=== PATIENT | male | born 1985 | race Caucasian/White ===

== ENCOUNTER → 2020-09-11 | Outpatient (CLI) | payer MEDICARE, OTHER ==
[~2020-09-11] MED LIST: CIPR500 PO; Crutch1 EACH MISC; Norco 5-325 Ta1 EACH PO; OXYC1TAB11; STOOL SOFTENER100 MG PO; Vistaril25 MG PO; Zofran Odt4 MG PO
[2020-09-11 15:11] LABS: BASOPHILS ABSOLUTE AUTO 0.04 K/mm3 (0.00-0.23); BASOPHILS PERCENT AUTO 1 % (0-2); EOSINOPHILS ABSOLUTE AUTO 0.15 K/mm3 (0.00-0.68); EOSINOPHILS PERCENT AUTO 2 % (0-6); Hematocrit 46.5 % (37.0-53.0); Hemoglobin 15.3 g/dL (13.5-17.5); IMMATURE GRAN ABSOLUTE AUTO 0.01 K/mm3 (0.00-0.10); IMMATURE GRAN PERCENT AUTO 0 % (0-1); LYMPHOCYTES ABSOLUTE AUTO 2.57 K/mm3 (0.84-5.20); LYMPHOCYTES PERCENT AUTO 35 % (21-46); MONOCYTES ABSOLUTE AUTO 0.41 K/mm3 (0.16-1.47); MONOCYTES PERCENT AUTO 6 % (4-13); Mean Corpuscular HGB 27.4 pg (26.0-34.0); Mean Corpuscular HGB Conc 32.9 g/dL (31.5-36.5); Mean Corpuscular Volume 83 fL (80-100); NEUTROPHILS ABSOLUTE AUTO 4.25 K/mm3 (1.96-9.15); NEUTROPHILS PERCENT AUTO 57 % (41-73); Platelet Count 140 K/mm3 (150-400); RDW Coefficient Variation 13.2 % (11.7-14.2); RDW Standard Deviation 40.1 fL (35.1-46.3); Red Blood Cell Count 5.59 M/mm3 (4.30-5.90); White Blood Cell Count 7.43 K/mm3 (4.00-11.30)
[2020-09-11 15:19] LABS: Mean Platelet Volume 13.1 fL (9.1-12.4)
[2020-09-11 17:10] LABS: Alanine Aminotransfer (ALT/SGP 38 U/L (12-78); Albumin, Blood 3.6 g/dL (3.4-5.0); Alk Phos 65 U/L (50-136); Anion Gap 7 mmol/L (6-16); Aspartate Aminotrans (AST/SGOT 24 U/L (12-37); Bilirubin, Total 0.2 mg/dL (0.1-1.0); Blood Urea Nitrogen 19 mg/dL (8-24); Bun/Creatinine Ratio 26.6 (12.0-20.0); CO2, Blood 28 mmol/L (21-32); Calcium, Blood 8.9 mg/dL (8.5-10.1); Chloride, Blood 106 mmol/L (98-108); Creatinine, Blood 0.72 mg/dL (0.60-1.20); Globulin, Blood 3.6 g/dL (2.2-4.0); Glomerular Filtration Rate >60 (60-); Glucose, Blood 129 mg/dL (70-99); Potassium, Blood 3.7 mmol/L (3.5-5.5); Sodium, Blood 141 mmol/L (136-145); Total Protein, Blood 7.2 g/dL (6.4-8.2)
== END | disposition home or self-care (01) ==
LOC: LAB 15:00 → LAB SHORT 15:00
PROVIDERS: Internal Medicine Infectious Disease
DX: M86.172 Other acute osteomyelitis, left ankle and foot (principal); L97.519 Non-pressure chronic ulcer of other part of right foot with unspecified severity; L97.529 Non-pressure chronic ulcer of other part of left foot with unspecified severity; Z45.2 Encounter for adjustment and management of vascular access device; Z79.2 Long term (current) use of antibiotics
CPT/HCPCS: 80053; 85025; 85651; 86140

== ENCOUNTER → 2020-09-17 | Outpatient (CLI) | payer MEDICARE, OTHER ==
[2020-09-17 16:52] LABS: BASOPHILS ABSOLUTE AUTO 0.03 K/mm3 (0.00-0.23); BASOPHILS PERCENT AUTO 0 % (0-2); EOSINOPHILS ABSOLUTE AUTO 0.23 K/mm3 (0.00-0.68); EOSINOPHILS PERCENT AUTO 3 % (0-6); Hematocrit 45.6 % (37.0-53.0); Hemoglobin 15.1 g/dL (13.5-17.5); IMMATURE GRAN ABSOLUTE AUTO 0.01 K/mm3 (0.00-0.10); IMMATURE GRAN PERCENT AUTO 0 % (0-1); LYMPHOCYTES ABSOLUTE AUTO 3.15 K/mm3 (0.84-5.20); LYMPHOCYTES PERCENT AUTO 46 % (21-46); MONOCYTES ABSOLUTE AUTO 0.37 K/mm3 (0.16-1.47); MONOCYTES PERCENT AUTO 5 % (4-13); Mean Corpuscular HGB 27.9 pg (26.0-34.0); Mean Corpuscular HGB Conc 33.1 g/dL (31.5-36.5); Mean Corpuscular Volume 84 fL (80-100); Mean Platelet Volume 12.2 fL (9.1-12.4); NEUTROPHILS PERCENT AUTO 44 % (41-73); Platelet Count 155 K/mm3 (150-400); RDW Coefficient Variation 13.5 % (11.7-14.2); RDW Standard Deviation 41.4 fL (35.1-46.3); Red Blood Cell Count 5.42 M/mm3 (4.30-5.90); White Blood Cell Count 6.79 K/mm3 (4.00-11.30)
[2020-09-17 17:11] LABS: Alanine Aminotransfer (ALT/SGP 34 U/L (12-78); Albumin, Blood 3.3 g/dL (3.4-5.0); Albumin/Globulin Ratio 0.9 (0.8-1.8); Alk Phos 62 U/L (50-136); Anion Gap 4 mmol/L (6-16); Aspartate Aminotrans (AST/SGOT 22 U/L (12-37); Bilirubin, Total 0.2 mg/dL (0.1-1.0); Blood Urea Nitrogen 21 mg/dL (8-24); Bun/Creatinine Ratio 26.7 (12.0-20.0); CO2, Blood 30 mmol/L (21-32); Calcium, Blood 8.3 mg/dL (8.5-10.1); Chloride, Blood 112 mmol/L (98-108); Creatinine, Blood 0.79 mg/dL (0.60-1.20); Globulin, Blood 3.5 g/dL (2.2-4.0); Glomerular Filtration Rate >60 (60-); Glucose, Blood 141 mg/dL (70-99); Potassium, Blood 3.9 mmol/L (3.5-5.5); Sodium, Blood 146 mmol/L (136-145); Total Protein, Blood 6.8 g/dL (6.4-8.2)
== END | disposition home or self-care (01) ==
LOC: LAB SHORT 16:40 → LAB 16:40
PROVIDERS: Internal Medicine Infectious Disease
DX: M86.172 Other acute osteomyelitis, left ankle and foot (principal); L97.522 Non-pressure chronic ulcer of other part of left foot with fat layer exposed; L97.512 Non-pressure chronic ulcer of other part of right foot with fat layer exposed; Z45.2 Encounter for adjustment and management of vascular access device; Z79.2 Long term (current) use of antibiotics; Z68.37 Body mass index [BMI] 37.0-37.9, adult
CPT/HCPCS: 80053; 85025; 85651; 86140

== ENCOUNTER → 2020-09-24 | Outpatient (CLI) | payer MEDICARE, OTHER ==
[2020-09-24 17:05] LABS: BASOPHILS ABSOLUTE AUTO 0.02 K/mm3 (0.00-0.23); BASOPHILS PERCENT AUTO 0 % (0-2); EOSINOPHILS ABSOLUTE AUTO 0.15 K/mm3 (0.00-0.68); EOSINOPHILS PERCENT AUTO 2 % (0-6); Hematocrit 47.8 % (37.0-53.0); Hemoglobin 15.3 g/dL (13.5-17.5); IMMATURE GRAN PERCENT AUTO 0 % (0-1); LYMPHOCYTES ABSOLUTE AUTO 2.79 K/mm3 (0.84-5.20); LYMPHOCYTES PERCENT AUTO 38 % (21-46); MONOCYTES ABSOLUTE AUTO 0.51 K/mm3 (0.16-1.47); MONOCYTES PERCENT AUTO 7 % (4-13); Mean Corpuscular HGB 27.3 pg (26.0-34.0); Mean Corpuscular Volume 85 fL (80-100); NEUTROPHILS ABSOLUTE AUTO 3.83 K/mm3 (1.96-9.15); NEUTROPHILS PERCENT AUTO 52 % (41-73); Platelet Count 147 K/mm3 (150-400); RDW Coefficient Variation 13.8 % (11.7-14.2); RDW Standard Deviation 42.7 fL (35.1-46.3); Red Blood Cell Count 5.61 M/mm3 (4.30-5.90)
[2020-09-24 17:26] LABS: Alanine Aminotransfer (ALT/SGP 31 U/L (12-78); Albumin, Blood 3.5 g/dL (3.4-5.0); Alk Phos 61 U/L (50-136); Anion Gap 4 mmol/L (6-16); Aspartate Aminotrans (AST/SGOT 25 U/L (12-37); Bilirubin, Total 0.3 mg/dL (0.1-1.0); Blood Urea Nitrogen 19 mg/dL (8-24); Bun/Creatinine Ratio 21.2 (12.0-20.0); CO2, Blood 31 mmol/L (21-32); Calcium, Blood 9.2 mg/dL (8.5-10.1); Chloride, Blood 110 mmol/L (98-108); Globulin, Blood 3.5 g/dL (2.2-4.0); Glomerular Filtration Rate >60 (60-); Glucose, Blood 89 mg/dL (70-99); Potassium, Blood 3.9 mmol/L (3.5-5.5); Sodium, Blood 145 mmol/L (136-145)
== END | disposition home or self-care (01) ==
LOC: LAB 16:52 → LAB SHORT 16:52
PROVIDERS: Internal Medicine Infectious Disease
DX: Z45.2 Encounter for adjustment and management of vascular access device (principal); M86.172 Other acute osteomyelitis, left ankle and foot; L97.522 Non-pressure chronic ulcer of other part of left foot with fat layer exposed; L97.512 Non-pressure chronic ulcer of other part of right foot with fat layer exposed; Z79.2 Long term (current) use of antibiotics
CPT/HCPCS: 80053; 85025; 85651; 86140

== ENCOUNTER 2020-09-29 02:23 | Day surgery (SDC) | payer MEDICARE, OTHER | END 2020-09-29 23:22 | disposition home or self-care (01) | LOC: WOUND 02:23 | DX: I96 Gangrene, not elsewhere classified (principal); L89.622 Pressure ulcer of left heel, stage 2; L89.612 Pressure ulcer of right heel, stage 2; M86.9 Osteomyelitis, unspecified; S91.301D Unspecified open wound, right foot, subsequent encounter; S91.302D Unspecified open wound, left foot, subsequent encounter; F41.8 Other specified anxiety disorders; Z87.891 Personal history of nicotine dependence; X58.XXXD Exposure to other specified factors, subsequent encounter | CPT/HCPCS: G0463 ==

== ENCOUNTER → 2020-09-30 | Outpatient (CLI) | payer MEDICARE, OTHER ==
[2020-09-30 15:38] LABS: BASOPHILS ABSOLUTE AUTO 0.03 K/mm3 (0.00-0.23); BASOPHILS PERCENT AUTO 0 % (0-2); EOSINOPHILS ABSOLUTE AUTO 0.13 K/mm3 (0.00-0.68); EOSINOPHILS PERCENT AUTO 2 % (0-6); Hematocrit 47.3 % (37.0-53.0); Hemoglobin 15.4 g/dL (13.5-17.5); IMMATURE GRAN ABSOLUTE AUTO 0.01 K/mm3 (0.00-0.10); IMMATURE GRAN PERCENT AUTO 0 % (0-1); LYMPHOCYTES ABSOLUTE AUTO 2.91 K/mm3 (0.84-5.20); LYMPHOCYTES PERCENT AUTO 42 % (21-46); MONOCYTES ABSOLUTE AUTO 0.44 K/mm3 (0.16-1.47); MONOCYTES PERCENT AUTO 6 % (4-13); Mean Corpuscular HGB 27.1 pg (26.0-34.0); Mean Corpuscular HGB Conc 32.6 g/dL (31.5-36.5); Mean Corpuscular Volume 83 fL (80-100); NEUTROPHILS ABSOLUTE AUTO 3.41 K/mm3 (1.96-9.15); NEUTROPHILS PERCENT AUTO 49 % (41-73); Platelet Count 143 K/mm3 (150-400); RDW Coefficient Variation 13.4 % (11.7-14.2); Red Blood Cell Count 5.69 M/mm3 (4.30-5.90); White Blood Cell Count 6.93 K/mm3 (4.00-11.30)
[2020-09-30 15:39] LABS: Mean Platelet Volume 13.1 fL (9.1-12.4)
[2020-09-30 15:45] LABS: C-REACTIVE PROTEIN, EXT RANGE 0.932 mg/dL (0.000-0.300)
[2020-09-30 15:47] LABS: Alanine Aminotransfer (ALT/SGP 28 U/L (12-78); Albumin, Blood 3.5 g/dL (3.4-5.0); Alk Phos 63 U/L (50-136); Anion Gap 9 mmol/L (6-16); Aspartate Aminotrans (AST/SGOT 23 U/L (12-37); Bilirubin, Total 0.3 mg/dL (0.1-1.0); Blood Urea Nitrogen 18 mg/dL (8-24); Bun/Creatinine Ratio 22.4 (12.0-20.0); CO2, Blood 26 mmol/L (21-32); Calcium, Blood 9.1 mg/dL (8.5-10.1); Chloride, Blood 110 mmol/L (98-108); Globulin, Blood 3.6 g/dL (2.2-4.0); Glomerular Filtration Rate >60 (60-); Glucose, Blood 88 mg/dL (70-99); Potassium, Blood 3.7 mmol/L (3.5-5.5); Sodium, Blood 145 mmol/L (136-145); Total Protein, Blood 7.1 g/dL (6.4-8.2)
== END | disposition home or self-care (01) ==
LOC: LAB 14:20 → LAB SHORT 14:20
PROVIDERS: Internal Medicine Infectious Disease
DX: M86.172 Other acute osteomyelitis, left ankle and foot (principal); L97.522 Non-pressure chronic ulcer of other part of left foot with fat layer exposed; L97.512 Non-pressure chronic ulcer of other part of right foot with fat layer exposed; Z45.2 Encounter for adjustment and management of vascular access device; Z79.2 Long term (current) use of antibiotics; Z68.37 Body mass index [BMI] 37.0-37.9, adult
CPT/HCPCS: 80053; 85025; 85651; 86140

== ENCOUNTER 2020-11-08 11:58 | Emergency (ER) | payer MEDICARE, OTHER ==
[~2020-11-08] VITALS: Ht 188 cm; Wt 142.9 kg
[2020-11-08 13:36] LABS: Influenza A, PCR Negative (NEGATIVE); Influenza B, PCR Negative (NEGATIVE); Resp Syncytial Virus, PCR Negative (NEGATIVE); SARS-Cov-2 (COVID-19) PCR, MMC Negative (NEGATIVE)
[2020-11-08] MEDS ORDERED: ACET500 PO (13:55)
[2020-11-08] MEDS ORDERED: GUAI600T33 PO (13:55)
[2020-11-08] MEDS ORDERED: OFLOXACIN5 ML LEFTEAR (13:55)
== END 2020-11-08 14:02 | disposition home or self-care (01) ==
LOC: ER 11:58
PROVIDERS: Physician Assistant
DX: H60.92 Unspecified otitis externa, left ear (principal); H61.21 Impacted cerumen, right ear; J06.9 Acute upper respiratory infection, unspecified; Z87.891 Personal history of nicotine dependence; Z20.822 Contact with and (suspected) exposure to COVID-19
CPT/HCPCS: 0241U; 71046; 99284-25; A9270

== ENCOUNTER 2021-02-24 00:24 | Day surgery (SDC) | payer MEDICARE, OTHER ==
[~2021-02-24 00:24] MED LIST changes: +ACET500 PO; +GUAI600T33 PO; +OFLOXACIN5 ML LEFTEAR
== END 2021-02-24 23:07 | disposition home or self-care (01) ==
LOC: WOUND 00:24
DX: L97.524 Non-pressure chronic ulcer of other part of left foot with necrosis of bone (principal); G60.9 Hereditary and idiopathic neuropathy, unspecified; M86.172 Other acute osteomyelitis, left ankle and foot; S91.105A Unspecified open wound of left lesser toe(s) without damage to nail, initial encounter; S81.802A Unspecified open wound, left lower leg, initial encounter; Y83.8 Other surgical procedures as the cause of abnormal reaction of the patient, or of later complication, without mention of misadventure at the time of the procedure; Z87.891 Personal history of nicotine dependence
CPT/HCPCS: G0463

== ENCOUNTER 2021-03-03 00:16 | Day surgery (SDC) | payer MEDICARE, OTHER | END 2021-03-03 23:31 | disposition home or self-care (01) | LOC: WOUND 00:16 | DX: L89.890 Pressure ulcer of other site, unstageable (principal); L97.524 Non-pressure chronic ulcer of other part of left foot with necrosis of bone; G60.9 Hereditary and idiopathic neuropathy, unspecified; M86.172 Other acute osteomyelitis, left ankle and foot; S91.105A Unspecified open wound of left lesser toe(s) without damage to nail, initial encounter; X58.XXXA Exposure to other specified factors, initial encounter | CPT/HCPCS: A9270 ==

== ENCOUNTER 2021-03-17 00:15 | Day surgery (SDC) | payer MEDICARE, OTHER | END 2021-03-17 23:47 | disposition home or self-care (01) | LOC: WOUND 00:15 | DX: L97.524 Non-pressure chronic ulcer of other part of left foot with necrosis of bone (principal); G60.9 Hereditary and idiopathic neuropathy, unspecified; M86.172 Other acute osteomyelitis, left ankle and foot; S91.105A Unspecified open wound of left lesser toe(s) without damage to nail, initial encounter; L89.890 Pressure ulcer of other site, unstageable; X58.XXXA Exposure to other specified factors, initial encounter | CPT/HCPCS: A9270 ==

== ENCOUNTER → 2021-03-19 | Outpatient (CLI) | payer MEDICARE, OTHER ==
[~2021-03-19] MED LIST changes: +AMOCLA875 PO; +LEVO750 PO; +Levaquin750 MG PO; +VISBIOME 112.51 EACH PO
== END ==
LOC: LAB UCHC 14:36 → LAB SHORT 14:36
DX: M86.9 Osteomyelitis, unspecified (principal)
CPT/HCPCS: 87070; 87075; 87076; 87077; 87186; 87205

== ENCOUNTER 2021-03-23 19:59 | Emergency (ER) | payer MEDICARE, OTHER ==
[~2021-03-23] VITALS: Ht 188 cm; Wt 163.3 kg
[~2021-03-23 19:59] MED LIST changes: -AMOCLA875 PO; -LEVO750 PO; -Levaquin750 MG PO; -VISBIOME 112.51 EACH PO
[2021-03-23 21:10] LABS: BASOPHILS ABSOLUTE AUTO 0.04 K/mm3 (0.00-0.23); BASOPHILS PERCENT AUTO 0 % (0-2); EOSINOPHILS ABSOLUTE AUTO 0.21 K/mm3 (0.00-0.68); EOSINOPHILS PERCENT AUTO 2 % (0-6); Hematocrit 46.7 % (37.0-53.0); Hemoglobin 16.4 g/dL (13.5-17.5); Mean Corpuscular HGB Conc 35.1 g/dL (31.5-36.5); Mean Corpuscular Volume 83 fL (80-100); Mean Platelet Volume 12.6 fL (9.1-12.4); Platelet Count 177 K/mm3 (150-400); RDW Coefficient Variation 13.6 % (11.7-14.2); RDW Standard Deviation 41.4 fL (35.1-46.3); Red Blood Cell Count 5.65 M/mm3 (4.30-5.90); White Blood Cell Count 10.79 K/mm3 (4.00-11.30)
[2021-03-23 21:12] LABS: IMMATURE GRAN ABSOLUTE AUTO 0.02 K/mm3 (0.00-0.10); IMMATURE GRAN PERCENT AUTO 0 % (0-1); LYMPHOCYTES PERCENT AUTO 37 % (21-46); MONOCYTES PERCENT AUTO 6 % (4-13); NEUTROPHILS ABSOLUTE AUTO 5.92 K/mm3 (1.96-9.15); NEUTROPHILS PERCENT AUTO 55 % (41-73)
[2021-03-23 22:22] LABS: Alanine Aminotransfer (ALT/SGP 46 U/L (12-78); Albumin, Blood 3.7 g/dL (3.4-5.0); Alk Phos 65 U/L (50-136); Anion Gap 7 mmol/L (6-16); Aspartate Aminotrans (AST/SGOT 40 U/L (12-37); Bilirubin, Total 0.5 mg/dL (0.1-1.0); Blood Urea Nitrogen 24 mg/dL (8-24); Bun/Creatinine Ratio 23.1 (12.0-20.0); CO2, Blood 24 mmol/L (21-32); Chloride, Blood 105 mmol/L (98-108); Creatinine, Blood 1.04 mg/dL (0.60-1.20); Globulin, Blood 3.8 g/dL (2.2-4.0); Glomerular Filtration Rate >60 (60-); Glucose, Blood 136 mg/dL (70-99); Potassium, Blood 3.9 mmol/L (3.5-5.5); Sodium, Blood 136 mmol/L (136-145); Total Protein, Blood 7.5 g/dL (6.4-8.2)
[2021-03-23] MEDS ORDERED: AMOCLA875 PO (23:58)
[2021-03-23] MEDS ORDERED: Levaquin750 MG PO (23:58)
== END 2021-03-24 00:15 | disposition home or self-care (01) ==
LOC: ER 19:59
PROVIDERS: Physician Assistant
DX: L97.529 Non-pressure chronic ulcer of other part of left foot with unspecified severity (principal); L08.9 Local infection of the skin and subcutaneous tissue, unspecified; B96.5 Pseudomonas (aeruginosa) (mallei) (pseudomallei) as the cause of diseases classified elsewhere; Z87.891 Personal history of nicotine dependence; Z79.899 Other long term (current) drug therapy
CPT/HCPCS: 80053; 85025; 99283; A9270

== ENCOUNTER 2021-03-24 03:25 | Day surgery (SDC) | payer MEDICARE, OTHER ==
[~2021-03-24 03:25] MED LIST changes: +AMOCLA875 PO; +Levaquin750 MG PO
== END 2021-03-24 23:09 | disposition home or self-care (01) ==
LOC: WOUND 03:25
DX: L97.524 Non-pressure chronic ulcer of other part of left foot with necrosis of bone (principal); G60.9 Hereditary and idiopathic neuropathy, unspecified; M86.172 Other acute osteomyelitis, left ankle and foot; L89.890 Pressure ulcer of other site, unstageable; S91.105A Unspecified open wound of left lesser toe(s) without damage to nail, initial encounter; X58.XXXA Exposure to other specified factors, initial encounter
CPT/HCPCS: A9270; G0463

== ENCOUNTER 2021-03-31 02:58 | Day surgery (SDC) | payer MEDICARE, OTHER | END 2021-03-31 23:18 | disposition home or self-care (01) | LOC: WOUND 02:58 | DX: M86.172 Other acute osteomyelitis, left ankle and foot (principal); L97.524 Non-pressure chronic ulcer of other part of left foot with necrosis of bone; L89.890 Pressure ulcer of other site, unstageable; G60.9 Hereditary and idiopathic neuropathy, unspecified; S91.105A Unspecified open wound of left lesser toe(s) without damage to nail, initial encounter; X58.XXXA Exposure to other specified factors, initial encounter | CPT/HCPCS: A9270 ==

== ENCOUNTER 2021-04-14 02:14 | Day surgery (SDC) | payer MEDICARE, OTHER | END 2021-04-14 23:01 | disposition home or self-care (01) | LOC: WOUND 02:14 | DX: M86.172 Other acute osteomyelitis, left ankle and foot (principal); L97.524 Non-pressure chronic ulcer of other part of left foot with necrosis of bone; L89.890 Pressure ulcer of other site, unstageable; S91.105A Unspecified open wound of left lesser toe(s) without damage to nail, initial encounter; X58.XXXA Exposure to other specified factors, initial encounter; G60.9 Hereditary and idiopathic neuropathy, unspecified ==

== ENCOUNTER 2021-04-21 00:21 | Day surgery (SDC) | payer MEDICARE, OTHER | END 2021-04-21 23:00 | disposition home or self-care (01) | LOC: WOUND 00:21 | DX: L89.890 Pressure ulcer of other site, unstageable (principal); M86.8X7 Other osteomyelitis, ankle and foot | CPT/HCPCS: A9270 ==

== ENCOUNTER 2021-05-01 01:52 | Day surgery (SDC) | payer MEDICARE, OTHER | END 2021-05-01 12:00 | disposition home or self-care (01) | LOC: WOUND 01:52 | DX: L97.425 Non-pressure chronic ulcer of left heel and midfoot with muscle involvement without evidence of necrosis (principal); L89.890 Pressure ulcer of other site, unstageable; G60.9 Hereditary and idiopathic neuropathy, unspecified; M86.172 Other acute osteomyelitis, left ankle and foot; S91.105A Unspecified open wound of left lesser toe(s) without damage to nail, initial encounter; X58.XXXA Exposure to other specified factors, initial encounter | CPT/HCPCS: A9270 ==

== ENCOUNTER 2021-05-04 21:12 | Inpatient (IN) | payer MEDICARE, OTHER ==
[~2021-05-04] VITALS: Ht 188 cm; Wt 175.9 kg
[2021-05-05 00:45] LABS: BASOPHILS ABSOLUTE AUTO 0.03 K/mm3 (0.00-0.23); BASOPHILS PERCENT AUTO 0 % (0-2); EOSINOPHILS ABSOLUTE AUTO 0.17 K/mm3 (0.00-0.68); EOSINOPHILS PERCENT AUTO 2 % (0-6); Hematocrit 44.8 % (37.0-53.0); Hemoglobin 14.8 g/dL (13.5-17.5); IMMATURE GRAN ABSOLUTE AUTO 0.03 K/mm3 (0.00-0.10); IMMATURE GRAN PERCENT AUTO 0 % (0-1); LYMPHOCYTES PERCENT AUTO 34 % (21-46); MONOCYTES PERCENT AUTO 7 % (4-13); Mean Corpuscular HGB 27.5 pg (26.0-34.0); Mean Corpuscular Volume 83 fL (80-100); Mean Platelet Volume 12.1 fL (9.1-12.4); NEUTROPHILS ABSOLUTE AUTO 4.71 K/mm3 (1.96-9.15); NEUTROPHILS PERCENT AUTO 56 % (41-73); Platelet Count 164 K/mm3 (150-400); RDW Coefficient Variation 13.6 % (11.7-14.2); RDW Standard Deviation 41.5 fL (35.1-46.3); Red Blood Cell Count 5.38 M/mm3 (4.30-5.90); White Blood Cell Count 8.44 K/mm3 (4.00-11.30)
[2021-05-05 01:02] LABS: Alanine Aminotransfer (ALT/SGP 30 U/L (12-78); Albumin, Blood 3.4 g/dL (3.4-5.0); Albumin/Globulin Ratio 0.9 (0.8-1.8); Alk Phos 60 U/L (50-136); Anion Gap 5 mmol/L (6-16); Aspartate Aminotrans (AST/SGOT 18 U/L (12-37); Bilirubin, Total 0.3 mg/dL (0.1-1.0); Blood Urea Nitrogen 23 mg/dL (8-24); Bun/Creatinine Ratio 23.1 (12.0-20.0); CO2, Blood 28 mmol/L (21-32); Chloride, Blood 105 mmol/L (98-108); Globulin, Blood 3.7 g/dL (2.2-4.0); Glomerular Filtration Rate >60 (60-); Glucose, Blood 104 mg/dL (70-99); Potassium, Blood 3.8 mmol/L (3.5-5.5); Sodium, Blood 138 mmol/L (136-145); Total Protein, Blood 7.1 g/dL (6.4-8.2)
[2021-05-05 15:49] LABS: Vancomycin, Trough 20.5 ug/mL (5.0-10.0)
--- NOTE | 2021-05-05 19:38 | NUR ---
SHIFT SUMMARY PATIENT NEW ADMIT TO UNIT THIS AM ABOUT 0900. RIGHT 2ND TOE INFECTION. PATIENT IS OBESE. ALERT AND ORIENTED AND COOPERATIVE. DR ROJO CONSULTED. PLAN IS FOR SURGICAL REMOVAL OF PART OF RIGHT 2ND TOE LATE TOMORROW 05/06/21 AFTERNOON. NPO AFTER BREAKFAST. ROUTINE FLUIDS AND ABX ORDERED. NEEDS A POWERGLID IV PLACED. ROLL OVER LOADER RN AWARE.
--- NOTE | 2021-05-06 04:05 | NUR ---
SHIFT SUMMARY NO ACUTE CHANGES. POWERGLIDE INSERTION THIS SHIFT. IV ABX PER ORDERS. PT RECEIVED TYLENOL + TORADOL FOR PAIN. NO DRAINAGE NOTED TO WOUND. PT INDEP TO RESTROOM. NPO SINCE MIDNIGHT. PLAN FOR SURGERY TODAY.
[2021-05-06 04:59] LABS: BASOPHILS ABSOLUTE AUTO 0.02 K/mm3 (0.00-0.23); BASOPHILS PERCENT AUTO 0 % (0-2); EOSINOPHILS ABSOLUTE AUTO 0.15 K/mm3 (0.00-0.68); EOSINOPHILS PERCENT AUTO 2 % (0-6); Hematocrit 43.6 % (37.0-53.0); Hemoglobin 14.4 g/dL (13.5-17.5); IMMATURE GRAN ABSOLUTE AUTO 0.01 K/mm3 (0.00-0.10); IMMATURE GRAN PERCENT AUTO 0 % (0-1); LYMPHOCYTES ABSOLUTE AUTO 2.21 K/mm3 (0.84-5.20); LYMPHOCYTES PERCENT AUTO 32 % (21-46); MONOCYTES ABSOLUTE AUTO 0.45 K/mm3 (0.16-1.47); MONOCYTES PERCENT AUTO 7 % (4-13); Mean Corpuscular HGB 27.4 pg (26.0-34.0); Mean Corpuscular Volume 83 fL (80-100); NEUTROPHILS ABSOLUTE AUTO 4.05 K/mm3 (1.96-9.15); NEUTROPHILS PERCENT AUTO 59 % (41-73); Platelet Count 158 K/mm3 (150-400); RDW Coefficient Variation 13.4 % (11.7-14.2); RDW Standard Deviation 40.1 fL (35.1-46.3); Red Blood Cell Count 5.26 M/mm3 (4.30-5.90); White Blood Cell Count 6.89 K/mm3 (4.00-11.30)
[2021-05-06 05:25] LABS: Alanine Aminotransfer (ALT/SGP 28 U/L (12-78); Albumin, Blood 3.1 g/dL (3.4-5.0); Albumin/Globulin Ratio 0.9 (0.8-1.8); Alk Phos 55 U/L (50-136); Anion Gap 4 mmol/L (6-16); Aspartate Aminotrans (AST/SGOT 20 U/L (12-37); Bilirubin, Total 0.4 mg/dL (0.1-1.0); Blood Urea Nitrogen 17 mg/dL (8-24); Bun/Creatinine Ratio 18.1 (12.0-20.0); CO2, Blood 29 mmol/L (21-32); Calcium, Blood 8.5 mg/dL (8.5-10.1); Chloride, Blood 107 mmol/L (98-108); Creatinine, Blood 0.94 mg/dL (0.60-1.20); Globulin, Blood 3.6 g/dL (2.2-4.0); Glomerular Filtration Rate >60 (60-); Glucose, Blood 102 mg/dL (70-99); Sodium, Blood 140 mmol/L (136-145); Total Protein, Blood 6.7 g/dL (6.4-8.2)
--- NOTE | 2021-05-06 10:41 | NUR ---
pt req pain meds and nausea meds toradol and zofran given no emesis mild only
--- NOTE | 2021-05-06 11:23 | NUR ---
pt stated pain is much better also h/a is improved
--- NOTE | 2021-05-06 18:01 | NUR ---
pt sitting on edge of bed or called after talking with dr pulido surg cancelled today ok to eat sched for around 3pm
[2021-05-06 23:40] LABS: Vancomycin, Trough 23.1 ug/mL (5.0-10.0)
[2021-05-07 04:45] LABS: Hematocrit 42.4 % (37.0-53.0); Mean Corpuscular HGB 27.3 pg (26.0-34.0); Mean Corpuscular Volume 83 fL (80-100); Platelet Count 163 K/mm3 (150-400); RDW Coefficient Variation 13.2 % (11.7-14.2); RDW Standard Deviation 39.9 fL (35.1-46.3); Red Blood Cell Count 5.12 M/mm3 (4.30-5.90)
[2021-05-07 04:58] LABS: Anion Gap 4 mmol/L (6-16); Blood Urea Nitrogen 19 mg/dL (8-24); Bun/Creatinine Ratio 18.4 (12.0-20.0); CO2, Blood 30 mmol/L (21-32); Calcium, Blood 8.4 mg/dL (8.5-10.1); Chloride, Blood 107 mmol/L (98-108); Creatinine, Blood 1.03 mg/dL (0.60-1.20); Glomerular Filtration Rate >60 (60-); Glucose, Blood 99 mg/dL (70-99); Potassium, Blood 3.6 mmol/L (3.5-5.5); Sodium, Blood 141 mmol/L (136-145)
--- NOTE | 2021-05-07 07:30 | NUR ---
SUMMARY PENDING POSSIBLE OR TODAY
--- NOTE | 2021-05-07 14:49 | NUR ---
PT TO OR AT ABOUT 1430
--- NOTE | 2021-05-07 14:59 | NUR ---
THE PATIENT WAS BROUGHT TO DAY SURGERY FOR HIS PROCEDURE. Patient up to Ambulate independently. Gait steady. History, Chart, Medications and Allergies reviewed before start of procedure.Lungs clear T/O to Auscultation. Patient confirms NPO status and agrees with scheduled surgery. Pre-Op teaching done. Pt verbalizes understanding.
--- NOTE | 2021-05-07 18:23 | NUR ---
CALL MADE TO PACU, PT IS GOING TO OR AT THIS TIME, SURGERY WAS DELAYED PER [facility] PATTERN CHANGER. PT MADE AWARE OF THIS AT 1820. WILL MAKE NOC RN AWARE.
--- NOTE | 2021-05-07 18:38 | NUR ---
REPORT RECEIVED FROM LEON BRIM RAISER AT THIS TIME
--- NOTE | 2021-05-08 05:01 | NUR ---
SHIFT SUMMARY: PT POD#1 FOR AMPUTATION OF HIS RT SECOND TOE. AMY WRAP+GAUZE C/D/I. GAUZE DRESSING SATURATED ONCE AND CHANGED/REINFORCED. PAIN BEING MANAGED WITH NORCO AND TORADOL PER EMAR. EXTREMITY ELEVATED ON PILLOW. VOIDING IN URINAL AND IN BATHROOM ONCE. PT SBA W/FWW. TOLERATING ACTIVITY WELL.
[2021-05-08] MEDS ORDERED: VISBIOME 112.51 EACH PO (14:55)
[2021-05-08] MEDS ORDERED: LEVO750 PO (14:56)
--- NOTE | 2021-05-08 15:29 | NUR ---
DISCHARGE NOTE: PATIENT WAS EDUCATED ON DISCHARGE INSTRUCTIONS. PATIENT VERBALIZED UNDERSTANDING OF INSTRUCTIONS. PERSCRIPTIONS FOR ABX AND PROBIOTIC WERE FAXED OVER TO [facility]. PATIENT IS ALERT AND ORIENTED X4. VS ARE WNL AND ON RA. PATIENT HAS A C/D/I AMY WRAP ON THE RIGHT FOOT. PATIENT RECIEVED A POST OP SHOE AND IS ON THE RIGHT FOOT. POWERGLIDE WAS TAKEN OUT AND WAS WNL. PATIENT IS TOLERTATING PO INTAKE AND VOIDING. HE IS ABLE TO WIGGLE FINGERS AND TOES. PATIENT HAS HIS ITEMS GATHERED AND IS BEING WHEELCHAIRED OUT TO HIS GIRLFRIENDS CAR TO BE TAKEN HOME.
== END 2021-05-08 16:00 | disposition home or self-care (01) | DRG 504 ==
LOC: ER 21:12 → ERHOLD 05-05 03:35 → SURS 05-05 03:35
PROVIDERS: Emergency Medicine; Internal Medicine; Pharmacist; Podiatrist; ADMIT Family Medicine
PROC: 0Y6R0Z3 Detachment at Right 2nd Toe, Low, Open Approach (ICD-10-PCS; principal; 2021-05-07 07:30)
DX: M86.171 Other acute osteomyelitis, right ankle and foot (principal); Z68.42 Body mass index [BMI] 45.0-49.9, adult; L03.031 Cellulitis of right toe; L97.514 Non-pressure chronic ulcer of other part of right foot with necrosis of bone; E66.01 Morbid (severe) obesity due to excess calories; F32.9 Major depressive disorder, single episode, unspecified; Z90.49 Acquired absence of other specified parts of digestive tract; Z98.890 Other specified postprocedural states; Z87.891 Personal history of nicotine dependence; G62.9 Polyneuropathy, unspecified; Z88.1 Allergy status to other antibiotic agents; Z88.8 Allergy status to other drugs, medicaments and biological substances; L97.519 Non-pressure chronic ulcer of other part of right foot with unspecified severity; Z79.899 Other long term (current) drug therapy
CPT/HCPCS: 36415; 73620; 73701; 80048; 80053; 80202; 83036; 83605; 84145; 84443; 85025; 85027; 87040; 87071; 87075; 87205; 88305; 88311; 96365; 96375; 99285-25; A9270; C1751; J0295; J1100; J1170; J1885; J2250; J2405; J2704; J3370; J7050; J7120; Q9967

== ENCOUNTER 2021-10-13 12:45 | Observation (INO) | payer MEDICARE, OTHER ==
[~2021-10-13] VITALS: Ht 188 cm; Wt 180.5 kg
[~2021-10-13 12:45] MED LIST changes: +LEVO750 PO; +VISBIOME 112.51 EACH PO
[2021-10-13 14:34] LABS: BASOPHILS ABSOLUTE AUTO 0.04 K/mm3 (0.00-0.23); BASOPHILS PERCENT AUTO 0 % (0-2); EOSINOPHILS ABSOLUTE AUTO 0.23 K/mm3 (0.00-0.68); EOSINOPHILS PERCENT AUTO 3 % (0-6); IMMATURE GRAN ABSOLUTE AUTO 0.02 K/mm3 (0.00-0.10); IMMATURE GRAN PERCENT AUTO 0 % (0-1); LYMPHOCYTES ABSOLUTE AUTO 2.55 K/mm3 (0.84-5.20); LYMPHOCYTES PERCENT AUTO 28 % (21-46); MONOCYTES ABSOLUTE AUTO 0.49 K/mm3 (0.16-1.47); MONOCYTES PERCENT AUTO 5 % (4-13); Mean Corpuscular HGB 27.1 pg (26.0-34.0); Mean Corpuscular HGB Conc 31.9 g/dL (31.5-36.5); Mean Corpuscular Volume 85 fL (80-100); Mean Platelet Volume 11.7 fL (9.1-12.4); NEUTROPHILS ABSOLUTE AUTO 5.72 K/mm3 (1.96-9.15); NEUTROPHILS PERCENT AUTO 63 % (41-73); Platelet Count 221 K/mm3 (150-400); RDW Coefficient Variation 13.9 % (11.7-14.2); Red Blood Cell Count 5.54 M/mm3 (4.30-5.90); White Blood Cell Count 9.05 K/mm3 (4.00-11.30)
[2021-10-13 14:51] LABS: Alanine Aminotransfer (ALT/SGP 32 U/L (12-78); Albumin, Blood 3.2 g/dL (3.4-5.0); Albumin/Globulin Ratio 0.8 (0.8-1.8); Alk Phos 75 U/L (50-136); Anion Gap 7 mmol/L (6-16); Aspartate Aminotrans (AST/SGOT 21 U/L (12-37); Bilirubin, Total 0.3 mg/dL (0.1-1.0); Blood Urea Nitrogen 16 mg/dL (8-24); Bun/Creatinine Ratio 17.7 (12.0-20.0); CO2, Blood 30 mmol/L (21-32); Calcium, Blood 9.2 mg/dL (8.5-10.1); Chloride, Blood 105 mmol/L (98-108); Creatinine, Blood 0.91 mg/dL (0.60-1.20); Globulin, Blood 4.2 g/dL (2.2-4.0); Glomerular Filtration Rate >60 (60-); Glucose, Blood 125 mg/dL (70-99); Potassium, Blood 3.7 mmol/L (3.5-5.5); Sodium, Blood 142 mmol/L (136-145); Total Protein, Blood 7.4 g/dL (6.4-8.2)
[2021-10-13] MEDS ORDERED: SERT25 PO (16:07)
[2021-10-13 16:52] LABS: Influenza A, PCR NEGATIVE (NEGATIVE); Influenza B, PCR NEGATIVE (NEGATIVE); Resp Syncytial Virus, PCR NEGATIVE (NEGATIVE); SARS-Cov-2 (COVID-19) PCR, MMC NEGATIVE (NEGATIVE)
--- NOTE | 2021-10-13 21:50 | NUR ---
ADMISSION NOTE PT ARRIVES FROM ED TO 210 AT 2008 BY WHEELCHAIR WITH NATIONAL GUARD. PT IS LEGALLY BLIND. PT HAS WRAPPING TO R 3RD TOE, WILL HAVE TOE AMPUTATED TOMORROW WITH DR ROJO. PT ALSO MISSING R 2ND TOE FROM PREVIOUS SURGERY. AREA IS RED AND WARM TO TOUCH. PT HAS ULCERATION TO BOTTOM OF L FOOT (PHOTO IN CHART). WOUND DOCUMENTED IN CHART. PT INDENDENT AND ABLE TO AMBULATE. PT TAKES MEDS WITH WATER. PT GIVEN SNACKS HE IS NPO AFTER MIDNIGHT. VSS. PT HAS HX OF CHRONIC FEET WOUNDS, DEPRESSION, PERIPHERAL NEUROPATHY, AND IS A FORMER SMOKER.
[2021-10-14 03:55] LABS: BASOPHILS ABSOLUTE AUTO 0.03 K/mm3 (0.00-0.23); BASOPHILS PERCENT AUTO 0 % (0-2); EOSINOPHILS ABSOLUTE AUTO 0.33 K/mm3 (0.00-0.68); EOSINOPHILS PERCENT AUTO 4 % (0-6); Hematocrit 41.6 % (37.0-53.0); Hemoglobin 13.2 g/dL (13.5-17.5); IMMATURE GRAN ABSOLUTE AUTO 0.01 K/mm3 (0.00-0.10); IMMATURE GRAN PERCENT AUTO 0 % (0-1); LYMPHOCYTES ABSOLUTE AUTO 2.86 K/mm3 (0.84-5.20); LYMPHOCYTES PERCENT AUTO 35 % (21-46); MONOCYTES ABSOLUTE AUTO 0.58 K/mm3 (0.16-1.47); MONOCYTES PERCENT AUTO 7 % (4-13); Mean Corpuscular HGB 26.3 pg (26.0-34.0); Mean Corpuscular HGB Conc 31.7 g/dL (31.5-36.5); Mean Corpuscular Volume 83 fL (80-100); Mean Platelet Volume 11.9 fL (9.1-12.4); NEUTROPHILS ABSOLUTE AUTO 4.31 K/mm3 (1.96-9.15); NEUTROPHILS PERCENT AUTO 53 % (41-73); Platelet Count 191 K/mm3 (150-400); RDW Coefficient Variation 13.8 % (11.7-14.2); RDW Standard Deviation 41.9 fL (35.1-46.3); Red Blood Cell Count 5.01 M/mm3 (4.30-5.90); White Blood Cell Count 8.12 K/mm3 (4.00-11.30)
--- NOTE | 2021-10-14 04:04 | NUR ---
SHIFT SUMMARY NO O2. NO TELE. PT IS LEGALLY BLIND. ABLE TO BE INDEPENDENT IN ROOM. URINAL GIVEN TO PT. PT HAVING SURGERY ON R 3RD TOE THIS AM. PT SLEEPING MOST OF THE NIGHT. NO COMPLAINTS. SORE OF L BOTTOM OF FOOT CLEANED AND WRAPPED WITH NON-ADHERENT DRESSING. REGULAR DIET AND R AC IV. CALL LIGHT WITHIN REACH. WILL CONTINUE TO MONITOR.
[2021-10-14 04:42] LABS: Alanine Aminotransfer (ALT/SGP 24 U/L (12-78); Albumin, Blood 2.8 g/dL (3.4-5.0); Albumin/Globulin Ratio 0.8 (0.8-1.8); Alk Phos 65 U/L (50-136); Anion Gap 5 mmol/L (6-16); Aspartate Aminotrans (AST/SGOT 16 U/L (12-37); Bilirubin, Total 0.1 mg/dL (0.1-1.0); Blood Urea Nitrogen 16 mg/dL (8-24); Bun/Creatinine Ratio 16.8 (12.0-20.0); CO2, Blood 31 mmol/L (21-32); Calcium, Blood 8.8 mg/dL (8.5-10.1); Chloride, Blood 106 mmol/L (98-108); Creatinine, Blood 0.95 mg/dL (0.60-1.20); Globulin, Blood 3.6 g/dL (2.2-4.0); Glomerular Filtration Rate >60 (60-); Glucose, Blood 145 mg/dL (70-99); Potassium, Blood 4.1 mmol/L (3.5-5.5); Sodium, Blood 142 mmol/L (136-145); Total Protein, Blood 6.4 g/dL (6.4-8.2)
--- NOTE | 2021-10-14 14:30 | NUR ---
PT TRANSFERED TO [facility] FROM FLOOR VIA [facility]NY. History, Chart, Medications and Allergies reviewed before start of procedure. Lungs clear T/O to Auscultation. Patient confirms NPO status and agrees with scheduled surgery. Pre-Op teaching done. Pt verbalizes understanding.
--- NOTE | 2021-10-14 16:22 | NUR ---
10/14/21 1622 Jose Elias [place] UTILIZED TO TRANSFER TO AND FROM OPERATING ROOM BED.
--- NOTE | 2021-10-14 18:41 | NUR ---
PATIENT ARRIVED BACK TO ROOM FROM PACU AFTER GETTING RIGHT FOOT 3RD TOE AMPUTATED. NOT SIGNS OR SYMPTOMS ACUTE DISTRESS NOTED. CALL LIGHT AND WATER IN EASY REACH. WILL MEDICATE FOR PAIN PER PATIENTS REQUEST.
[2021-10-15 05:59] LABS: Thyroid Stimulating Hormone 0.944 uIU/mL (0.360-4.800)
--- NOTE | 2021-10-15 06:40 | NUR ---
VSS. DENIES PAIN. DENIED NEED FOR ADDITIONAL PAIN MEDICATION. R 3RD TOE DSG CDI. +PULSES/WARMTH. PT LEGALLY BLIND. OBSERVATION STATUS. POSSIBLE DISCHARGE 10/15. IV ACCIDENTAL DISCHARGE AT APPROX 0500 THIS AM. ATTEMPTED NEW IV BY [address] WILL PASS ON TO DAYSHIFT.
[2021-10-15] MEDS ORDERED: ACET325 PO (10:06)
[2021-10-15] MEDS ORDERED: FAMO20 PO (10:07)
[2021-10-15] MEDS ORDERED: AMOCLA875 PO (10:07)
[2021-10-15] MEDS ORDERED: Norco 5-325 Ta1 EACH PO (10:08)
[2021-10-15] MEDS ORDERED: AMLO5 PO (10:09)
--- NOTE | 2021-10-15 10:39 | NUR ---
DISCHARGE: DISCHARGE INSTUCTIONS GIVEN TO PATIENT AT THIS TIME. PATIENT VERBALZIED UNDERSTANDING. PATIENT INSTUCTED TO FOLLOW UP WITH PCP IN ONE WEEK AND FOLLOW UP WITH DR TETE HAIR TO CALL FOR APPT. PRESCRIPTIONS GIVEN TO PATIENT, PRESCRIPTIONS FAXED TO [facility] WITH CONFIRMATION RECEIVED. NO SIGNS OR SYMPTOMS ACUTE DISTRESS NOTED. DRESSING TO RIGHT FOOT WAS CLEAN DRY AND INTACT.
== END 2021-10-15 10:45 | disposition home or self-care (01) ==
LOC: ER 12:45 → SURS 12:46 → ERHOLD 12:46 → SURS 12:47 → ERHOLD 17:06 → SURS 17:06 → ER 17:06 → SURS 17:06 → ERHOLD 20:23 → SURS 20:23
PROVIDERS: Internal Medicine; Physician Assistant; ADMIT Family Medicine
PROC: 0Y6T0Z1 Detachment at Right 3rd Toe, High, Open Approach (ICD-10-PCS; principal; 2021-10-15)
DX: M86.171 Other acute osteomyelitis, right ankle and foot (principal); E66.01 Morbid (severe) obesity due to excess calories; G60.3 Idiopathic progressive neuropathy; F32.A Depression, unspecified; H54.8 Legal blindness, as defined in USA; I73.9 Peripheral vascular disease, unspecified; M20.41 Other hammer toe(s) (acquired), right foot; L97.514 Non-pressure chronic ulcer of other part of right foot with necrosis of bone; L97.522 Non-pressure chronic ulcer of other part of left foot with fat layer exposed; Z68.43 Body mass index [BMI] 50.0-59.9, adult; Z89.421 Acquired absence of other right toe(s); Z87.891 Personal history of nicotine dependence; F12.10 Cannabis abuse, uncomplicated; Z20.822 Contact with and (suspected) exposure to COVID-19
CPT/HCPCS: 0241U; 36415; 80053; 82607; 82746; 82947; 84443; 85025; 87071; 87075; 87077; 87147; 87186; 87205; 90686; 96372; 96374; 99284; A9270; G0378; J0690; J1100; J1644; J1885; J2405; J2704; J3010; J7120

== ENCOUNTER 2022-10-27 15:41 | Emergency (ER) | payer MEDICARE, OTHER ==
[~2022-10-27] VITALS: Ht 188 cm; Wt 183.7 kg
[~2022-10-27 15:41] MED LIST changes: +ACET325 PO; +AMLO5 PO; +FAMO20 PO; +SERT25 PO
== END 2022-10-27 21:23 | disposition left against medical advice (07) ==
LOC: ER 15:41
DX: R11.2 Nausea with vomiting, unspecified (principal); R19.7 Diarrhea, unspecified; Z53.21 Procedure and treatment not carried out due to patient leaving prior to being seen by health care provider; Z79.899 Other long term (current) drug therapy
CPT/HCPCS: A9270

== ENCOUNTER → 2023-01-05 | Outpatient (CLI) | payer MEDICARE, OTHER | END | disposition home or self-care (01) | LOC: LAB SHORT 07:42 → PLD 07:42 | DX: L60.2 Onychogryphosis (principal); B35.1 Tinea unguium | CPT/HCPCS: 88305; 88312 ==